=== PATIENT | male | born 1980 | race Caucasian/White ===

== ENCOUNTER 2018-12-05 13:38 | Inpatient (IN) ==
[2018-12-05] MEDS ORDERED: Sod Chloride 0.9% Inj 1,000 ML IV.SIG ONE (14:18)
[2018-12-05] MEDS ORDERED: Morphine Inj 4 MG/ML Vial IV.PUSH ONE (14:18)
[2018-12-05 14:49] LABS: Baso # (Auto) 0.2 th/mm3 (0.0-0.2); Baso % (Auto) 1.3 % (0.0-2.0); Eos % (Auto) 0.4 % (0.0-4.0); Hematocrit 40.1 % (39.0-51.0); Hemoglobin 12.7 gm/dL (13.0-17.0); Lymph # (Auto) 1.6 th/mm3 (1.0-4.8); Lymph % (Auto) 13.3 % (9.0-44.0); Mean Corpuscular HGB Conc 31.6 % (32.0-36.0); Mean Corpuscular Volume 82.4 fL (80.0-100.0); Mean Platelet Volume 8.2 fL (7.0-11.0); Neut # (Auto) 9.1 th/mm3 (1.8-7.7); Platelet Count 314 th/mm3 (150-450); Red Blood Count 4.86 mil/mm3 (4.50-5.90); Red Cell Distribution Width 16.6 % (11.6-17.2); White Blood Count 11.9 th/mm3 (4.0-11.0)
[2018-12-05 14:53] LABS: Chloride 106 meq/L (98-107); Potassium 3.7 meq/L (3.5-5.1); Sodium 138 meq/L (136-145)
[2018-12-05 14:56] LABS: Calcium 8.9 mg/dL (8.5-10.1)
[2018-12-05 14:57] LABS: Albumin 3.2 g/dL (3.4-5.0); Anion Gap 7 meq/L (5-15); Blood Urea Nitrogen 14 mg/dL (7-18); Carbon Dioxide 25.5 meq/L (21.0-32.0); Glucose,Random 100 mg/dL (74-106); Lipase 82 U/L (73-393); Magnesium 1.9 mg/dL (1.5-2.5)
[2018-12-05 15:00] LABS: Alanine Aminotransferase 27 U/L (12-78); Aspartate Aminotransferase 11 U/L (15-37); Glomerular Filtration Rate Greater Than 89 mL/min (>89)
[2018-12-05 15:02] LABS: Alkaline Phosphatase 94 U/L (45-117)
[2018-12-05 15:06] LABS: Bilirubin,Urine Negative (Negative); Clarity,Urine Clear (Clear); Color,Urine Yellow (Yellw/Straw); Glucose,Urine (UA) Negative (Negative); Leukocyte Esterase,Urine Negative (Negative); Nitrite,Urine Negative (Negative); PH,Urine 5.5 (5.0-8.5); Urobilinogen,Urine 0.2 mg/dL (Less than 2)
[2018-12-05 15:11] LABS: RBC,Urine 0-3 /hpf (0-3); Squamous Epithelial Cell,Urine 0-5 /hpf (0-5)
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
--- NOTE | 2018-12-05 16:17 | CT ---
EXAM DATE: 12/05/2018 3:46 PM EST AGE/SEX: 38 years / Male INDICATIONS: Mid abdominal pain radiating to lower back. CLINICAL DATA: This is the patient's initial encounter. Patient reports that signs and symptoms have been present for 4 - 6 days and indicates a pain score of 10/10. MEDICAL/SURGICAL HISTORY: Gastroesophageal reflux disease. Deep venous thrombosis. Hypertensi on. Paraplegic. IVC Filter placement. ORAL CONTRAST: No oral contrast ingested. RADIATION DOSE: 22.07 CTDI (mGy) COMPARISON: [facility] [place] ABDOMEN & PELVIS W CONTRAST, 10/26/2018. . TECHNIQUE: Multiple contiguous axial images were obtained through the abdomen and pelvis following b olus infusion of 95 ml Omnipaque 350 (iohexol) nonionic water-soluble contrast as a single exam dos e. No oral contrast ingested. Using automated exposure control and adjustment of the mA and/or kV ac cording to patient size, radiation dose was kept as low as reasonably achievable to obtain optimal di agnostic quality images. DICOM format image data is available electronically for review and comparis on. FINDINGS: Lung bases are clear except for minimal dependent atelectasis. No acute findings in the liver, spleen, adrenals, kidneys or pancreas. No calcified gallstones or karmen iary ductal dilatation. Small hiatal hernia. Previous fusion of the lower thoracic and lumbar spine w ith normal alignment. Old fracture T12. Mild constipation. Stable marked atrophy of the musculature in the abdomen and pelvic girdle. Stable sclerotic changes at the right ischial tuberosity and inferior pubic ramus. Presumed decubitus ulcer over the greater trochanter again noted with some wound closure in the interval. Right trochan teric decubitus stable in appearance without evidence for open wound. CONCLUSION: 1. No acute findings within the abdomen and pelvis. 2. Chronic appearing osteomyelitis in the inferior right pelvis appears stable. Bilateral decubitus ulcers over the trochanteric region similar in appearance with some interval wound closure on the lef t. 3. Bladder wall mildly thickened, stable. Electronically signed by: Jey Syed MD Board Certified Radiologist 12/05/2018 4:16 PM EST
[2018-12-05] MEDS ORDERED: Piperacil/Tazo 4.5 GM Premix 4.5 GM/100 ML BAG IV.SIG SCH (17:00)
[2018-12-05] MEDS ORDERED: Sod Chloride 0.9% Inj 1,000 ML IV.SIG SCH (17:15)
[2018-12-05] MEDS ORDERED: Acetaminophen 325 MG Tablet PO PRN (17:55)
[2018-12-05] MEDS: Sod Chloride 0.9% Inj 1,000 ML IV.CONT SCH (18:30)
[2018-12-05] MEDS ORDERED: Lactobacillus Acidophilus/L. Spores Tablet PO SCH (20:30)
[2018-12-05] MEDS: Lactobacillus Acidophilus/L. Spores Tablet PO SCH (20:39)
[2018-12-05] MEDS: Heparin - SQ 10,000 UNITS/ML Vial SQ SCH (20:39)
[2018-12-05] MEDS: Vancomycin Inj 2,250 MG in Sodium Chlor 0.9% Inj 500 ML IV.SIG SCH (21:10)
[2018-12-06] MEDS: Piperacil/Tazo 3.375 GM Premix 3.375 GM/50 ML PIGGYBACK IV.SIG SCH ×5 (00:36→23:10)
[2018-12-06 06:29] LABS: Chloride 112 meq/L (98-107); Potassium 3.3 meq/L (3.5-5.1); Sodium 146 meq/L (136-145)
[2018-12-06 06:56] LABS: Baso # (Auto) 0.1 th/mm3 (0.0-0.2); Baso % (Auto) 1.2 % (0.0-2.0); Eos # (Auto) 0.2 th/mm3 (0.0-0.4); Eos % (Auto) 2.1 % (0.0-4.0); Hematocrit 33.7 % (39.0-51.0); Lymph % (Auto) 27.1 % (9.0-44.0); Mean Corpuscular HGB Conc 32.7 % (32.0-36.0); Mean Corpuscular Hemoglobin 26.9 pg (27.0-34.0); Mean Corpuscular Volume 82.1 fL (80.0-100.0); Mean Platelet Volume 8.7 fL (7.0-11.0); Mono # (Auto) 0.5 th/mm3 (0.0-0.9); Neut # (Auto) 4.6 th/mm3 (1.8-7.7); Neut % (Auto) 62.6 % (16.0-70.0); Platelet Count 262 th/mm3 (150-450); Red Cell Distribution Width 15.7 % (11.6-17.2); White Blood Count 7.4 th/mm3 (4.0-11.0)
[2018-12-06 07:12] LABS: Alanine Aminotransferase 25 U/L (12-78); Albumin 2.8 g/dL (3.4-5.0); Alkaline Phosphatase 78 U/L (45-117); Anion Gap 10 meq/L (5-15); Aspartate Aminotransferase 13 U/L (15-37); Blood Urea Nitrogen 10 mg/dL (7-18); Calcium 8.1 mg/dL (8.5-10.1); Carbon Dioxide 23.9 meq/L (21.0-32.0); Glomerular Filtration Rate Greater Than 89 mL/min (>89); Glucose,Random 122 mg/dL (74-106)
[2018-12-06 07:26] LABS: Platelet Estimate Normal (Normal); Platelet Morphology Normal (Normal); RBC Morphology Normal (Normal)
[2018-12-06] MEDS: Vancomycin Inj 2,250 MG in Sodium Chlor 0.9% Inj 500 ML IV.SIG SCH ×2 (09:58→20:31)
[2018-12-06] MEDS: Heparin Central Flush 100 UNIT/ML 5 ML Vial IV.FLUSH SCH ×2 (10:00→10:22)
[2018-12-06] MEDS: Sod Chloride 0.9% Inj 1,000 ML IV.CONT SCH ×3 (10:01→23:13)
[2018-12-06] MEDS: Lactobacillus Acidophilus/L. Spores Tablet PO SCH ×3 (10:02→18:22)
[2018-12-06] MEDS: Heparin - SQ 10,000 UNITS/ML Vial SQ SCH ×2 (10:09→20:24)
--- NOTE | 2018-12-06 10:27 | XR ---
EXAM DATE: 12/06/2018 10:23 AM EST AGE/SEX: 38 years / Male INDICATIONS: Patient presents with cough and hematuria. CLINICAL DATA: This is the patient's initial encounter. Patient reports that signs and symptoms have been present for 4 - 6 days and indicates a pain score of 6/10. MEDICAL/SURGICAL HISTORY: . Deep venous thrombosis. Osteomyelitis. paraplegic. Pressure ulcer. Fusion, lumbar. IVC filter . COMPARISON: No prior exams available for comparison. FINDINGS: No infiltrate, effusion or pneumothorax demonstrated. Heart size within normal limits. Patient has hitchcock d previous thoracolumbar spine fusion with posterior instrumentation. There is a tunneled right internal jugular central venous catheter with tip in the superior vena cava . CONCLUSION: No acute cardiopulmonary disease demonstrated. Electronically signed by: Tonny Umanzor MD Board Certified Radiologist 12/06/2018 10:26 AM EST
--- NOTE | 2018-12-06 10:39 | P.PNWCN ---
Wound Care Nurse Consult Additional information: Patient not seen today for wound VAC dressing change. Patient has wound VAC dressing changes done routinely at home by home health nurses. Wound care is not needed for routine VAC dressing changes. Supplies were ordered and MEGAN Gonzalez to change wound VAC dressing today.
--- NOTE | 2018-12-06 15:45 | P.HPIM ---
History of Present Illness Primary Care Physician: UNKNOWN Chief Complaint: Concern for Infection History of Present Illness: Mr. South is a 38-year-old male. At baseline he has paraplegia. Recently he has had a complication of skin wounds and osteomyelitis. He was started on IV vancomycin and has been having IV vancomycin as an outpatient. And catheter is being used as a central line access point. The patient says he was feeling better from his previous infections. However for the past week has been having a gradual worsening of well-being. He says that he has had malaise. He has tachycardia, sweats, chills, decreased appetite, and fatigue. He reports that this is how he feels when he has infection. Zosyn was started overnight, the patient's leukocytosis has improved on Zosyn. He still has some tachycardia but this is also improved with antibiotics. Etiology could be viral, however, patient does have a high risk for secondary bacterial infections given his baseline comorbidities and active indwelling central line. Urinalysis and chest x-ray do not reveal any etiology for infection. Viral versus bacterial infection would be suspected. Bacterial infection must be ruled out. Sepsis suspected, though criteria not fully present at time of admit. Review of Systems Constitutional: No fevers, chills no night sweats, fatigue, weakness Eyes: No eye pain, no blurry vision, no loss of vision ENT: No sore throat, no ear pain, no rhinorrhea Cardiovascular: No chest pain, tachycardia, no palpitations, no syncope Respiratory: No wheezing, no cough, no shortness of breath Gastrointestinal: No abdominal pain, no black tarry stools, no bright red blood per rectum, no vomiting, no diarrhea Musculoskeletal: No joint pain, no muscle cramps, no stiffness Integumentary: No rash, no ulcers, no drainage Neurologic: No sensory loss, no loss of motor function, no dizziness Psychiatric: No behavioral changes, no hallucinations, no suicidal ideations [facility] Medical History Medical History Infection of wound due to methicillin resistant Staphylococcus aureus (MRSA) ( Acute) Decubitus ulcer (Acute) Osteomyelitis (Acute) Abscess (Acute) Neurogenic bladder (Chronic) UTI (urinary tract infection) (Acute) Paraplegia following spinal cord injury (Chronic) HTN (hypertension) (Acute) GERD (gastroesophageal reflux disease) (Acute) History of femur fracture (Acute) History of DVT (deep vein thrombosis) (Acute) History of MRSA infection (Acute ~10/26/18) Paraplegic immobility syndrome (Acute) Presence of IVC filter (Acute) Pressure ulcer (Acute) Family History Family History Other Diabetes mellitus Social History Social History Substance History: No History of Abuse Second Hand Smoke Exposure: No Smoking Status: Never smoker Tobacco Type: Cigarettes How Often Do You Have a Drink Containing Alcohol: 2 to 4 times a month Recent Travel in [place] within the Last 8 Weeks: No Recent Out of Country Travel within the Last 8 Weeks: No Immunization History Tetanus Immunization: >5 Years Medications and Allergies Allergies Allergy/AdvReac Type Severity Reaction Status Date / Time levofloxacin [From Levaquin] Allergy ALLERGY Verified 12/05/18 13:55 Home Medications Medication Instructions Recorded Confirmed Type vancomycin in 0.9 % sodium chl 2,250 mg IV BID 12/05/18 12/05/18 History Active Medications: Active Medications Acetaminophen (Tylenol) 650 mg PO Q4H PRN PRN Reason: Temp > 100.4 Hydrocodone Bitart/Acetaminophen ([place] 10/325) 1 tab PO Q4H PRN PRN Reason: Pain 7 to 10 Last Admin: 12/06/18 14:59 Dose: 1 tab Hydrocodone Bitart/Acetaminophen ([place] 5/325) 1 tab PO Q4H PRN PRN Reason: Pain 3 to 6 Last Admin: 12/05/18 18:29 Dose: 1 tab Al Hydroxide/Mg Hydroxide (Milk Of Lora Soto) 30 ml PO Q12H PRN PRN Reason: Mild Constipation Heparin Sodium (Porcine) (Heparin Inj) 5,000 units SQ Q12HR [facility] Last Admin: 12/06/18 10:09 Dose: 5,000 units Heparin Sodium (Porcine) (Heparin Central Flush) 0 unit IV.FLUSH PRN PRN PRN Reason: Flush each lumen Heparin Sodium (Porcine) (Heparin Central Flush) 0 unit IV.FLUSH DAILY [facility] Last Admin: 12/06/18 10:22 Dose: 250 unit Sodium Chloride (Ns Inj) 1,000 mls @ 100 mls/hr IV.CONT .Q10H [facility] Last Admin: 12/06/18 14:18 Dose: 100 mls/hr Piperacillin/Tazobactam/Dextrose (Zosyn 3.375 Gm Premix) 3.375 gm in 50 mls @ 100 mls/hr IV.SIG Q6H [facility] Last Infusion: 12/06/18 13:43 Dose: Infused Vancomycin HCl 2,250 mg/ (Sodium Chloride) 522.5 mls @ 250 mls/hr IV.SIG BID [facility] Last Infusion: 12/06/18 12:26 Dose: Infused Lactobacillus Acidophilus (Lactinex) 1 tab PO TID [facility] Last Admin: 12/06/18 12:25 Dose: 1 tab Ondansetron HCl (Zofran Inj) 4 mg IV.PUSH Q6H PRN PRN Reason: NAUSEA OR VOMITING Last Admin: 12/06/18 10:09 Dose: 4 mg Sodium Chloride (Ns Flush) 2 ml IV.FLUSH BID [facility] Last Admin: 12/06/18 10:11 Dose: 2 ml Sodium Chloride (Ns Flush) 2 ml IV.FLUSH PRN PRN PRN Reason: FLUSH AFTER USING IV ACCESS Last Admin: 12/05/18 18:31 Dose: 2 ml Physical Exam Vital signs: Vital Signs 12/05/18 15:55 12/05/18 16:15 12/05/18 17:10 Temperature Pulse Rate 103 H 105 H Respiratory Rate 16 16 16 Blood Pressure 144/88 H 146/86 H Pulse Oximetry 99 99 12/05/18 18:30 12/05/18 19:35 12/05/18 20:00 Temperature Pulse Rate 100 H 106 H Respiratory Rate 16 16 16 Blood Pressure 140/82 147/87 H Pulse Oximetry 98 98 12/06/18 00:00 12/06/18 04:00 12/06/18 08:00 Temperature 98.4 F 98.8 F 97.5 F L Pulse Rate 99 H 89 93 H Respiratory Rate 16 18 20 Blood Pressure 132/81 117/63 129/73 Pulse Oximetry 94 L 97 97 12/06/18 12:00 Temperature 97.4 F L Pulse Rate 99 H Respiratory Rate 20 Blood Pressure 127/89 Pulse Oximetry 96 Intake & Output 12/05/18 12/06/18 12/06/18 18:59 06:59 18:59 Intake Total 2100 / 2100 1622.5 / 1622.5 1882.5 / 1882.5 Output Total 800 / 800 800 / 800 350 / 350 Balance 1300 / 1300 822.5 / 822.5 1532.5 / 1532.5 Weight 104.5 kg 106.6 kg Intake: IV 2099 / 2099 1622.5 / 1622.5 1572.5 / 1572.5 NS Inj 1,000 ML @ 100 mls/hr IV 1000 / 1000 1000 / 1000 .CONT .Q10H [facility] Rx#:[id number] Zosyn 3.375 GM Premix 3.375 gm 100 / 100 50 / 50 In 50 ml @ 100 mls/hr IV.SIG Q6H [facility] Rx#:[id number] Zosyn 4.5 GM Premix 4.5 gm In 100 / 100 100 ml @ 200 mls/hr IV.SIG ONCE [facility] Rx#:[id number] NS Inj 1,000 ML @ 1000 mls/hr 1999 / 1999 IV.SIG BOLUS [facility] Rx#:[id number] Vancomycin Inj 2,250 MG In NS 522.5 / 522.5 522.5 / 522.5 Inj 500 ML @ 250 mls/hr IV.SIG BID [facility] Rx#:[id number] Oral 310 / 310 Output: Urine 800 / 800 800 / 800 350 / 350 Other: Weight On Admission 106.8 kg Narrative: GENERAL: NAD, A&Ox3 HEAD: Normocephalic. NECK: Supple, trachea midline. No lymphadenopathy. EYES: No scleral icterus. No injection or drainage. CARDIOVASCULAR: Regular rate and rhythm without murmurs, gallops, or rubs. RESPIRATORY: Breath sounds equal bilaterally. No accessory muscle use. GASTROINTESTINAL: Abdomen soft, non-tender, nondistended. MUSCULOSKELETAL: No cyanosis, or edema. SKIN: Warm and dry. Healing wounds at left hip/pelvis NEURO: Paraplegia. Results Labs CBC & Chem 7: 12/06/18 05:24 12/06/18 05:24 Imaging Impressions Abdomen/Pelvis CT 12/05/18 14:18 CONCLUSION: 1. No acute findings within the abdomen and pelvis. 2. Chronic appearing osteomyelitis in the inferior right pelvis appears stable. Bilateral decubitus ulcers over the trochanteric region similar in appearance with some interval wound closure on the left. 3. Bladder wall mildly thickened, stable. Chest X-Ray 12/06/18 00:00 CONCLUSION: No acute cardiopulmonary disease demonstrated. Caprini VTE Risk Assessment Caprini VTE Risk Assessment: No/Low Risk (score <= 1) Caprini Risk Assessment Model: Point Value = 1 Point Value = 2 Point Value = 3 Point Value = 5 Age 41-60 Minor surgery BMI > 25 kg/m2 Swollen legs Varicose veins or History of unexplained or recurrent spontaneous Oral contraceptives or hormone replacement Sepsis (< 1 month) Serious lung disease, including pneumonia (< 1 month) Abnormal pulmonary function Acute myocardial infarction Congestive heart failure (< 1 month) History of inflammatory bowel disease Medical patient at bed rest Age 61-74 Arthroscopic surgery Major open surgery (> 45 min) Laparoscopic surgery (> 45 min) Malignancy Confined to bed (> 72 hours) Immobilizing plaster cast Central venous access Age >= 75 History of VTE Family history of VTE Factor V Leiden Prothrombin [id number] Lupus anticoagulant Anticardiolipin antibodies Elevated serum homocysteine Heparin-induced thrombocytopenia Other congenital or acquired thrombophilia Stroke (< 1 month) Elective arthroplasty Hip, pelvis, or leg fracture Acute spinal cord injury (< 1 month) Prophylaxis Regimen: Total Risk Factor Score Risk Level Prophylaxis Regimen 0-1 Low Early ambulation 2 Moderate Order ONE of the following: *Sequential Compression Device (SCD) *Heparin 5000 units SQ BID 3-4 Higher Order ONE of the following medications: *Heparin 5000 units SQ TID *Enoxaparin/Lovenox 40 mg SQ daily (WT < 150 kg, CrCl > 30 mL/min) *Enoxaparin/Lovenox 30 mg SQ daily (WT < 150 kg, CrCl > 10-29 mL/min) *Enoxaparin/Lovenox 30 mg SQ BID (WT < 150 kg, CrCl > 30 mL/min) AND/OR *Sequential Compression Device (SCD) 5 or more Highest Order ONE of the following medications: *Heparin 5000 units SQ TID (Preferred with Epidurals) *Enoxaparin/Lovenox 40 mg SQ daily (WT < 150 kg, CrCl > 30 mL/min) *Enoxaparin/Lovenox 30 mg SQ daily (WT < 150 kg, CrCl > 10-29 mL/min) *Enoxaparin/Lovenox 30 mg SQ BID (WT < 150 kg, CrCl > 30 mL/min) AND *Sequential Compression Device (SCD) Assessment and Plan Plan 38-year-old male admitted secondary to suspicion of infection Tachycardia Suspected early sepsis Increased risk for bacteremia given indwelling central line follow blood cultures to ensure no bacteremia Follow on telemetry Negative UA Negative chest x-ray Alternative etiology could be viral (especially if no bactermia at 72 hours on cultures) Osteomyelitis Skin ulcers with cellulitis Decubitus ulcer MRSA wound infection Right gluteal abscess (drained) Ulcers healing through time Continue vancomycin Neurogenic bladder History of recurrent UTIs No signs of urinary tract infection on UA Continue catheter Chronic paraplegia Paraplegic immobility syndrome Supportive care Hypertension Continue baseline treatment Follow blood pressures Adjust treatments as needed Gastroesophageal reflux disease History of IVC filter Continue baseline treatments DVT prophylaxis Heparin H&P: Quality VTE Deep Vein Thrombosis/Pulmonary Embolism Present on Admission: No
[2018-12-06] MEDS: Heparin Central Flush 100 UNIT/ML 5 ML Vial IV.FLUSH PRN (20:24)
[2018-12-07] MEDS ORDERED: Magnesium Oxide 400 MG Tablet PO ONE (00:54)
[2018-12-07] MEDS: Piperacil/Tazo 3.375 GM Premix 3.375 GM/50 ML PIGGYBACK IV.SIG SCH ×4 (04:53→22:16)
[2018-12-07] MEDS: Heparin Central Flush 100 UNIT/ML 5 ML Vial IV.FLUSH PRN (05:17)
[2018-12-07 06:24] LABS: Baso % (Auto) 0.1 % (0.0-2.0); Eos # (Auto) 0.2 th/mm3 (0.0-0.4); Eos % (Auto) 2.5 % (0.0-4.0); Hematocrit 35.1 % (39.0-51.0); Hemoglobin 11.5 gm/dL (13.0-17.0); Lymph # (Auto) 1.5 th/mm3 (1.0-4.8); Lymph % (Auto) 17.9 % (9.0-44.0); Mean Corpuscular HGB Conc 32.8 % (32.0-36.0); Mean Corpuscular Hemoglobin 27.2 pg (27.0-34.0); Mean Platelet Volume 8.5 fL (7.0-11.0); Mono # (Auto) 0.7 th/mm3 (0.0-0.9); Mono % (Auto) 7.9 % (0.0-8.0); Neut # (Auto) 6.2 th/mm3 (1.8-7.7); Neut % (Auto) 71.6 % (16.0-70.0); Platelet Count 278 th/mm3 (150-450); Red Blood Count 4.23 mil/mm3 (4.50-5.90); Red Cell Distribution Width 16.1 % (11.6-17.2); White Blood Count 8.6 th/mm3 (4.0-11.0)
[2018-12-07 06:34] LABS: Chloride 110 meq/L (98-107); Potassium 3.7 meq/L (3.5-5.1); Sodium 143 meq/L (136-145)
[2018-12-07 06:42] LABS: Albumin 2.9 g/dL (3.4-5.0); Anion Gap 7 meq/L (5-15); Blood Urea Nitrogen 7 mg/dL (7-18); Calcium 8.3 mg/dL (8.5-10.1); Glucose,Random 99 mg/dL (74-106); Magnesium 1.8 mg/dL (1.5-2.5)
[2018-12-07 06:45] LABS: Alanine Aminotransferase 23 U/L (12-78); Aspartate Aminotransferase 10 U/L (15-37); Glomerular Filtration Rate Greater Than 89 mL/min (>89)
[2018-12-07 06:48] LABS: Alkaline Phosphatase 72 U/L (45-117)
[2018-12-07] MEDS: Heparin Central Flush 100 UNIT/ML 5 ML Vial IV.FLUSH SCH (09:49)
[2018-12-07] MEDS: Vancomycin Inj 2,250 MG in Sodium Chlor 0.9% Inj 500 ML IV.SIG SCH (09:49)
[2018-12-07] MEDS: Heparin - SQ 10,000 UNITS/ML Vial SQ SCH ×2 (09:49→20:17)
[2018-12-07] MEDS: Lactobacillus Acidophilus/L. Spores Tablet PO SCH ×3 (09:49→18:33)
--- NOTE | 2018-12-07 11:11 | P.PNIM ---
Subjective Interval history: Follow-up suspected early sepsis/osteomyelitis/MRSA wound infection/right gluteal abscess/neurogenic bladder/history of recurrent UTI December 07, 2018patient seen and examined, states he is not feeling well, however currently afebrile. Currently on IV vancomycin. Complains of generalized weakness and fatigue. Physical Exam Vital signs: Vital Signs 12/06/18 12:00 12/06/18 16:00 12/06/18 20:00 Temperature 97.4 F L 97.8 F 97.8 F Pulse Rate 107 H 95 H 93 H Respiratory Rate 20 20 18 Blood Pressure 127/89 143/78 H 125/76 Pulse Oximetry 96 96 96 12/07/18 00:00 12/07/18 04:00 12/07/18 08:00 Temperature 96.4 F L 97.5 F L 97.6 F Pulse Rate 91 H 88 85 Respiratory Rate 18 18 16 Blood Pressure 147/76 H 147/89 H 117/67 Pulse Oximetry 95 97 96 Intake & Output 12/06/18 12/07/18 12/07/18 18:59 06:59 18:59 Intake Total 2212.5 / 2212.5 1662 / 1662 241 / 241 Output Total 350 / 350 2300 / 2300 Balance 1862.5 / 1862.5 -638 / -638 241 / 241 Weight 112.2 kg Intake: IV 1622.5 / 1622.5 1572 / 1572 NS Inj 1,000 ML @ 100 mls/hr IV 1000 / 1000 950 / 950 .CONT .Q10H [facility] Rx#:[id number] Zosyn 3.375 GM Premix 3.375 gm 100 / 100 100 / 100 In 50 ml @ 100 mls/hr IV.SIG Q6H [facility] Rx#:[id number] Vancomycin Inj 2,250 MG In NS 522.5 / 522.5 522 / 522 Inj 500 ML @ 250 mls/hr IV.SIG BID [facility] Rx#:[id number] Oral 590 / 590 90 / 90 241 / 241 Output: Urine 350 / 350 2300 / 2300 Narrative: GENERAL: NAD, A&Ox3 HEAD: Normocephalic. NECK: Supple, trachea midline. No lymphadenopathy. EYES: No scleral icterus. No injection or drainage. CARDIOVASCULAR: Regular rate and rhythm without murmurs, gallops, or rubs. RESPIRATORY: Breath sounds equal bilaterally. No accessory muscle use. GASTROINTESTINAL: Abdomen soft, non-tender, nondistended. MUSCULOSKELETAL: No cyanosis, or edema. Paraplegia SKIN: Warm and dry. Healing wounds at left hip/pelvis-wound VAC in place NEURO: Paraplegia. Results Labs CBC & Chem 7: 12/07/18 05:20 12/07/18 05:20 Labs: Microbiology 12/05/18 17:25 Blood - Line Aerobic Blood Culture - Preliminary No growth in 2 days 12/05/18 17:25 Blood - Line Anaerobic Blood Culture - Preliminary No growth in 2 days 12/05/18 17:20 Blood - Line Aerobic Blood Culture - Preliminary No growth in 2 days 12/05/18 17:20 Blood - Line Anaerobic Blood Culture - Preliminary No growth in 2 days Assessment and Plan Plan 38-year-old man with Suspected early sepsis Increased risk for bacteremia given indwelling central line Currently on vancomycin and Zosyn pending culture report Osteomyelitis Skin ulcers with cellulitis Decubitus ulcer MRSA wound infection Right gluteal abscess (drained) Consult infectious disease specialist Continue vancomycin and Zosyn pending culture report Appreciate input from wound care nurse Neurogenic bladder History of recurrent UTIs Continue catheter Chronic paraplegia Paraplegic immobility syndrome Supportive care PT to treat and eval Hypertension Adjust treatments as needed Gastroesophageal reflux disease History of IVC filter Continue baseline treatments DVT prophylaxis Heparin Progress Note: Quality VTE Deep Vein Thrombosis/Pulmonary Embolism Present on Admission: No
[2018-12-07] MEDS: Sod Chloride 0.9% Inj 1,000 ML IV.CONT SCH ×2 (11:37→20:17)
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
[2018-12-08] MEDS: Piperacil/Tazo 3.375 GM Premix 3.375 GM/50 ML PIGGYBACK IV.SIG SCH ×4 (05:16→23:53)
[2018-12-08] MEDS: Sod Chloride 0.9% Inj 1,000 ML IV.CONT SCH ×2 (08:00→16:51)
[2018-12-08] MEDS: Heparin Central Flush 100 UNIT/ML 5 ML Vial IV.FLUSH SCH (09:00)
[2018-12-08] MEDS: Heparin - SQ 10,000 UNITS/ML Vial SQ SCH ×2 (09:00→21:28)
[2018-12-08] MEDS: Lactobacillus Acidophilus/L. Spores Tablet PO SCH ×3 (09:00→17:33)
--- NOTE | 2018-12-08 10:54 | P.PNIM ---
Subjective Interval history: Follow-up patient with history of osteomyelitis admitted with abdominal and GI malaise December 08, 2018patient seen and examined, reports improvement of abdominal pain, nausea and vomiting. Was seen yesterday by ID and vancomycin was discontinued. Physical Exam Vital signs: Vital Signs 12/07/18 12:00 12/07/18 20:00 12/08/18 00:00 Temperature 97.8 F 98.0 F 98.8 F Pulse Rate 93 H 84 84 Respiratory Rate 21 18 18 Blood Pressure 131/75 128/76 138/89 Pulse Oximetry 95 96 97 12/08/18 03:42 12/08/18 04:00 12/08/18 08:00 Temperature 97.4 F L 98 F Pulse Rate 87 87 85 Respiratory Rate 18 20 Blood Pressure 130/66 112/64 Pulse Oximetry 96 96 Intake & Output 12/07/18 12/08/18 12/08/18 18:59 06:59 18:59 Intake Total 1061 / 1061 300 / 300 Output Total 1100 / 1100 1600 / 1600 Balance -39 / -39 -1300 / -1300 Weight 110.7 kg Intake: IV 100 / 100 100 / 100 Zosyn 3.375 GM Premix 3.375 gm 100 / 100 100 / 100 In 50 ml @ 100 mls/hr IV.SIG Q6H [facility] Rx#:[id number] Oral 961 / 961 200 / 200 Output: Urine 1100 / 1100 1600 / 1600 Other: Date of Last Bowel Movement 12/07/18 Narrative: GENERAL: NAD, A&Ox3 HEAD: Normocephalic. NECK: Supple, trachea midline. No lymphadenopathy. EYES: No scleral icterus. No injection or drainage. CARDIOVASCULAR: Regular rate and rhythm without murmurs, gallops, or rubs. RESPIRATORY: Breath sounds equal bilaterally. No accessory muscle use. GASTROINTESTINAL: Abdomen soft, non-tender, nondistended. MUSCULOSKELETAL: No cyanosis, or edema. Paraplegia SKIN: Warm and dry. Healing wounds at left hip/pelvis-wound VAC in place NEURO: Paraplegia. Results Labs CBC & Chem 7: 12/07/18 05:20 12/07/18 05:20 Labs: Microbiology 12/05/18 17:25 Blood - Line Aerobic Blood Culture - Preliminary No growth in 2 days 12/05/18 17:25 Blood - Line Anaerobic Blood Culture - Preliminary No growth in 2 days 12/05/18 17:20 Blood - Line Aerobic Blood Culture - Preliminary No growth in 2 days 12/05/18 17:20 Blood - Line Anaerobic Blood Culture - Preliminary No growth in 2 days Assessment and Plan Plan 38-year-old man with Suspected early sepsis Increased risk for bacteremia given indwelling central line Currently on Zosyn pending culture report Vancomycin was discontinued 12/07/18 Repeat UA pending History of osteomyelitis Skin ulcers with cellulitis Decubitus ulcer MRSA wound infection Right gluteal abscess (drained) Appreciate input from infectious disease specialist Continue Zosyn pending culture report Appreciate input from wound care nurse Neurogenic bladder History of recurrent UTIs Continue catheter Repeat UA pending Chronic paraplegia Paraplegic immobility syndrome Supportive care PT to treat and eval Hypertension Adjust treatments as needed Gastroesophageal reflux disease History of IVC filter Continue baseline treatments DVT prophylaxis Heparin Progress Note: Quality VTE Deep Vein Thrombosis/Pulmonary Embolism Present on Admission: No
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
[2018-12-09] MEDS: Piperacil/Tazo 3.375 GM Premix 3.375 GM/50 ML PIGGYBACK IV.SIG SCH ×4 (05:04→23:23)
[2018-12-09] MEDS: Sod Chloride 0.9% Inj 1,000 ML IV.CONT SCH ×2 (05:06→12:07)
[2018-12-09] MEDS: Lactobacillus Acidophilus/L. Spores Tablet PO SCH ×3 (09:13→17:15)
[2018-12-09] MEDS: Heparin Central Flush 100 UNIT/ML 5 ML Vial IV.FLUSH SCH (09:13)
[2018-12-09] MEDS: Heparin - SQ 10,000 UNITS/ML Vial SQ SCH ×2 (09:14→21:34)
--- NOTE | 2018-12-09 10:49 | P.PNIM ---
Subjective Interval history: Follow-up patient with history of osteomyelitis who presented with abdominal and GI malaise December 09, 2018patient seen and examined, stable and has no complaint of abdominal pain or nausea. Afebrile. Physical Exam Vital signs: Vital Signs 12/08/18 12:00 12/08/18 12:50 12/08/18 16:00 Temperature 97.8 F Pulse Rate 90 84 82 Respiratory Rate 20 Blood Pressure 137/82 Pulse Oximetry 95 12/08/18 20:00 12/09/18 00:00 12/09/18 04:00 Temperature 97.6 F 98.1 F 97.6 F Pulse Rate 84 86 87 Respiratory Rate 18 18 18 Blood Pressure 139/86 142/84 H 123/71 Pulse Oximetry 96 95 95 12/09/18 08:00 Temperature 97 F L Pulse Rate 77 Respiratory Rate 18 Blood Pressure 118/74 Pulse Oximetry 97 Intake & Output 12/08/18 12/09/18 12/09/18 18:59 06:59 18:59 Intake Total 801 / 801 830 / 830 Output Total 1075 / 1075 1300 / 1300 Balance -274 / -274 -470 / -470 Weight 110.2 kg Intake: IV 100 / 100 100 / 100 Zosyn 3.375 GM Premix 3.375 gm 100 / 100 100 / 100 In 50 ml @ 100 mls/hr IV.SIG Q6H [facility] Rx#:[id number] Oral 701 / 701 730 / 730 Output: Urine 1075 / 1075 1300 / 1300 Other: Date of Last Bowel Movement 12/07/18 Narrative: GENERAL: NAD, A&Ox3 HEAD: Normocephalic. NECK: Supple, trachea midline. No lymphadenopathy. EYES: No scleral icterus. No injection or drainage. CARDIOVASCULAR: Regular rate and rhythm without murmurs, gallops, or rubs. RESPIRATORY: Breath sounds equal bilaterally. No accessory muscle use. GASTROINTESTINAL: Abdomen soft, non-tender, nondistended. MUSCULOSKELETAL: No cyanosis, or edema. Paraplegia SKIN: Warm and dry. Healing wounds at left hip/pelvis-wound VAC in place NEURO: Paraplegia. Results Labs CBC & Chem 7: 12/07/18 05:20 12/07/18 05:20 Labs: Microbiology 12/05/18 17:25 Blood - Line Aerobic Blood Culture - Preliminary No growth in 3 days 12/05/18 17:25 Blood - Line Anaerobic Blood Culture - Preliminary No growth in 3 days 12/05/18 17:20 Blood - Line Aerobic Blood Culture - Preliminary No growth in 3 days 12/05/18 17:20 Blood - Line Anaerobic Blood Culture - Preliminary No growth in 3 days Assessment and Plan Plan 38-year-old man with Suspected early sepsis-resolved Increased risk for bacteremia given indwelling central line Currently on Zosyn pending culture report Vancomycin was discontinued 12/07/18 Repeat UA pending, and if urine culture negative will discontinue antibiotics and monitor off antibiotics times 24 hours prior to discharge. History of osteomyelitis Skin ulcers with cellulitis Decubitus ulcer MRSA wound infection Right gluteal abscess (drained) Appreciate input from infectious disease specialist Continue Zosyn pending culture report Appreciate input from wound care nurse Neurogenic bladder History of recurrent UTIs Continue catheter Repeat UA pending Chronic paraplegia Paraplegic immobility syndrome Supportive care PT to treat and eval Hypertension Adjust treatments as needed Gastroesophageal reflux disease History of IVC filter Continue baseline treatments DVT prophylaxis Heparin Progress Note: Quality VTE Deep Vein Thrombosis/Pulmonary Embolism Present on Admission: No
[2018-12-09 21:35] VITALS: RESP 20
[2018-12-10] MEDS: Sod Chloride 0.9% Inj 1,000 ML IV.CONT SCH ×2 (00:20→08:54)
[2018-12-10] MEDS: Piperacil/Tazo 3.375 GM Premix 3.375 GM/50 ML PIGGYBACK IV.SIG SCH ×2 (04:43→10:36)
[2018-12-10 09:01] VITALS: BP 112/64; TEMP 96.8; O2SAT 96
--- NOTE | 2018-12-10 09:48 | P.PNIM ---
Subjective Interval history: Follow-up suspected sepsis/history of osteomyelitis December 10, 2018patient seen and examined, currently afebrile and urine culture negative times 2 days. Denies any abdominal pain, nausea or vomiting. Physical Exam Vital signs: Vital Signs 12/09/18 12:00 12/09/18 16:00 12/09/18 17:03 Temperature 98.5 F 98 F Pulse Rate 91 H 92 H Respiratory Rate 20 20 5 L Blood Pressure 135/84 150/86 H Pulse Oximetry 98 97 12/09/18 20:00 12/10/18 00:00 12/10/18 04:00 Temperature 98.4 F 98.2 F Pulse Rate 88 86 81 Respiratory Rate 20 20 Blood Pressure 139/70 134/81 Pulse Oximetry 92 L 97 12/10/18 08:00 Temperature 96.8 F L Pulse Rate 83 Respiratory Rate 20 Blood Pressure 112/64 Pulse Oximetry 96 Intake & Output 12/09/18 12/10/18 12/10/18 18:59 06:59 18:59 Intake Total 1060 / 1060 100 / 100 Output Total 1375 / 1375 1400 / 1400 Balance -315 / -315 -1300 / -1300 Weight 110.2 kg Intake: IV 100 / 100 100 / 100 Zosyn 3.375 GM Premix 3.375 gm 100 / 100 100 / 100 In 50 ml @ 100 mls/hr IV.SIG Q6H KAUSHIK Rx#:[id number] Oral 960 / 960 Output: Urine 1375 / 1375 800 / 800 Urine Amount (Catheter) 600 / 600 Straight 600 / 600 Other: # Voids 1 Date of Last Bowel Movement 12/09/18 # Bowel Movements 1 Narrative: GENERAL: NAD, A&Ox3 HEAD: Normocephalic. NECK: Supple, trachea midline. No lymphadenopathy. EYES: No scleral icterus. No injection or drainage. CARDIOVASCULAR: Regular rate and rhythm without murmurs, gallops, or rubs. RESPIRATORY: Breath sounds equal bilaterally. No accessory muscle use. GASTROINTESTINAL: Abdomen soft, non-tender, nondistended. MUSCULOSKELETAL: No cyanosis, or edema. Paraplegia SKIN: Warm and dry. Healing wounds at left hip/pelvis-wound VAC in place NEURO: Paraplegia. Urinary Catheter Management Straight: Cath placed during this visit: no Results Labs CBC & Chem 7: 12/07/18 05:20 12/07/18 05:20 Labs: Microbiology 12/07/18 20:30 Catheterized Urine Urine Culture - Final No growth in 48 hours 12/05/18 17:25 Blood - Line Aerobic Blood Culture - Preliminary No growth in 4 days 12/05/18 17:25 Blood - Line Anaerobic Blood Culture - Preliminary No growth in 4 days 12/05/18 17:20 Blood - Line Aerobic Blood Culture - Preliminary No growth in 4 days 12/05/18 17:20 Blood - Line Anaerobic Blood Culture - Preliminary No growth in 4 days Assessment and Plan Plan 38-year-old man with Suspected early sepsis-resolved Increased risk for bacteremia given indwelling central line Discontinue Zosyn Vancomycin was discontinued 12/07/18 Repeat UA pending, and if urine culture negative will discontinue antibiotics and monitor off antibiotics times 24 hours prior to discharge. History of osteomyelitis Skin ulcers with cellulitis Decubitus ulcer MRSA wound infection Right gluteal abscess (drained) Appreciate input from infectious disease specialist Discontinue Zosyn Appreciate input from wound care nurse Neurogenic bladder History of recurrent UTIs Continue catheter Repeat urine culture has been negative times 2 days Chronic paraplegia Paraplegic immobility syndrome Supportive care PT to treat and eval Hypertension Adjust treatments as needed Gastroesophageal reflux disease History of IVC filter Continue baseline treatments DVT prophylaxis Heparin Progress Note: Quality VTE Deep Vein Thrombosis/Pulmonary Embolism Present on Admission: No
--- NOTE | 2018-12-10 09:50 | P.DS ---
DS: Providers Date of admission: 12/07/18 13:53 Primary care physician: UNKNOWN Consults: 12/07/18 11:11 Consult to Infectious Diseases Routine Consulting Provider: Ren Castillo Reason for Consultation: 38-year-old man with known history of MRSA osteomyelitis, decubitus ulcer, agenic bladder, right gluteal abscess and admitted to early suspected sepsis . Patient known to the service and currently on IV antibiotics, please evaluate and advise for therapy Notified:: Service Spoke with:: beata Date Notified:: 12/07/18 Time Notified:: 11:24 Ordering Provider: MACEY Brief History from admission: Mr. South is a 38-year-old male. At baseline he has paraplegia. Recently he has had a complication of skin wounds and osteomyelitis. He was started on IV vancomycin and has been having IV vancomycin as an outpatient. And catheter is being used as a central line access point. The patient says he was feeling better from his previous infections. However for the past week has been having a gradual worsening of well-being. He says that he has had malaise. He has tachycardia, sweats, chills, decreased appetite, and fatigue. He reports that this is how he feels when he has infection. Zosyn was started overnight, the patient's leukocytosis has improved on Zosyn. He still has some tachycardia but this is also improved with antibiotics. Etiology could be viral, however, patient does have a high risk for secondary bacterial infections given his baseline comorbidities and active indwelling central line. Urinalysis and chest x-ray do not reveal any etiology for infection. Viral versus bacterial infection would be suspected. Bacterial infection must be ruled out. Sepsis suspected, though criteria not fully present at time of admit. DS: Summary Patient admitted initially for suspected early sepsis for which he was started on IV antibiotics including Zosyn and vancomycin. Patient was previously on vancomycin for osteomyelitis when he was admitted to the hospital. Infectious disease special was consulted. Secondary to patient history of recurrent UTI, repeat culture were obtained which remained negative and all antibiotics were subsequently discontinued. Patient condition remains stable. Wound VAC was changed per protocol. DVT and GI prophylaxis were provided. Time Spent with Patient Total time spent providing and/or coordinating discharge services: Greater than 30 minutes Quality: VTE Deep Vein Thrombosis/Pulmonary Embolism Present on Admission: No Exam Narrative Exam Narrative: GENERAL: NAD SKIN: Warm and dry. HEAD: Atraumatic. Normocephalic. EYES: Pupils equal and round. No scleral icterus. No injection or drainage. ENT: No nasal bleeding or discharge. Mucous membranes pink and moist. NECK: Trachea midline. No JVD. CARDIOVASCULAR: Regular rate and rhythm. RESPIRATORY: No accessory muscle use. Clear to auscultation. Breath sounds equal bilaterally. GASTROINTESTINAL: Abdomen soft, non-tender, nondistended. Hepatic and splenic margins not palpable. MUSCULOSKELETAL: Extremities without clubbing, cyanosis, or edema. No obvious deformities. NEUROLOGICAL: Awake and alert. No obvious cranial nerve deficits. Motor grossly within normal limits. Five out of 5 muscle strength in the arms and legs. Normal speech. PSYCHIATRIC: Appropriate mood and affect; insight and judgment normal. Results Procedures completed during hospitalization: None Labs on day of discharge: Preliminary micro results at discharge 12/05/18 17:25 Aerobic Blood Culture - Preliminary Blood - Line No growth in 4 days Anaerobic Blood Culture - Preliminary No growth in 4 days 12/05/18 17:20 Aerobic Blood Culture - Preliminary Blood - Line No growth in 4 days Anaerobic Blood Culture - Preliminary No growth in 4 days Impressions ITS Impressions Abdomen/Pelvis CT 12/05/18 14:18 CONCLUSION: 1. No acute findings within the abdomen and pelvis. 2. Chronic appearing osteomyelitis in the inferior right pelvis appears stable. Bilateral decubitus ulcers over the trochanteric region similar in appearance with some interval wound closure on the left. 3. Bladder wall mildly thickened, stable. Chest X-Ray 12/06/18 00:00 CONCLUSION: No acute cardiopulmonary disease demonstrated. Discharge Plan Discharge Disposition Patient Disposition: W/Home Health Service Discharge Condition Condition: Stable Discharge Order Discharge Orders: Discharge Order (Routine); Ordered 12/10/18 Ordered By: Roberto Gomez Physicians Team Primary Care Provider: GUY, Attending Provider: Roberto Gomez Other Providers: Ren Castillo Rxs /Orders / Referrals /Forms Prescriptions: Discontinued vancomycin in 0.9 % sodium chl 2 gram/500 mL Solution 2,250 mg IV BID RF: 0 Referrals: UNKNOWN, [Primary Care Provider] - See Instructions Discharge Interventions Interventions: Discharge Planning - Case Management Last Done: 12/09/18 14:40 Status ED Status: Left Department
--- NOTE | 2018-12-10 09:52 | P.DCO ---
Home Health Nursing Order: Signs/symptoms of disease process and Wound care and dressing changes I have seen patient Shola South on 12/10/18. My clinical findings support the need for the requested home health care services because: Infection with risk of complications I certify that my clinical findings support that this patient is homebound because: Non-ambulatory: confined to bed or chair
[2018-12-10] MEDS: Lactobacillus Acidophilus/L. Spores Tablet PO SCH (10:35)
[2018-12-10] MEDS: Heparin - SQ 10,000 UNITS/ML Vial SQ SCH (10:35)
[2018-12-10] MEDS: Heparin Central Flush 100 UNIT/ML 5 ML Vial IV.FLUSH SCH (10:36)
[2018-12-10 11:10] VITALS: PULSE 97
== END 2018-12-10 13:05 | disposition home health service (06) | DRG 872 ==
LOC: PHED 13:38 → PHEDA 13:38 → PH3 20:01
PROVIDERS: ADMIT Hospitalist; ATTEND Hospitalist
CPT/HCPCS: 71010; 71045; 74177; 80053; 81001; 83605; 83690; 83735; 85025; 87040; 87086; 87275; 87276; 87804; 90761; 90775; 90776; 96361; 96365; 96366; 96375; 96376; 99285; G0378; J1642; J1644; J2270; J2405; J2543; J3370; J7030; J7040; Q9967